=== PATIENT | female | born 1975 | race Caucasian/White ===

== ENCOUNTER 2020-04-21 15:58 | Emergency (ER) | payer MEDICAID ==
[~2020-04-21] VITALS: Ht 167.6 cm; Wt 102.1 kg
[2020-04-21] MEDS ORDERED: IBUPROFEN 600 MG TABLET PO ONE (16:30)
[2020-04-21] MEDS ORDERED: ACETAMINOPHEN ES 500 MG TABLET PO ONE (16:30)
[2020-04-21] MEDS ORDERED: IBUPROFEN 600 MG TABLET ONE (16:33)
[2020-04-21] MEDS ORDERED: ACETAMINOPHEN ES 500 MG TABLET ONE (16:33)
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
--- NOTE | 2020-04-21 17:33 | NUR ---
Abrasions cleansed with saline. Abrasions are very small and they are not bleeding. No glass seen. hoe worker Valerie called to assist.
--- NOTE | 2020-04-21 18:08 | NUR ---
[facility] OFFICERS HERE IN ROOM SPEAKING TO PATIENT AND SON
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
--- NOTE | 2020-04-21 18:45 | NUR ---
DC AND FOLLOW UP INSTRUCTIONS GIVEN AND EXPLAINED TO PATIENT WHO STATES SHE UNDERSTANDS ALL INSTRUCTIONS
== END 2020-04-21 18:48 | disposition home or self-care (01) ==
LOC: ER 15:58
DX: S80.812A Abrasion, left lower leg, initial encounter (principal); S80.811A Abrasion, right lower leg, initial encounter; S10.91XA Abrasion of unspecified part of neck, initial encounter; X99.8XXA Assault by other sharp object, initial encounter; Y92.89 Other specified places as the place of occurrence of the external cause; E66.9 Obesity, unspecified; Z68.36 Body mass index [BMI] 36.0-36.9, adult; R07.89 Other chest pain; Z88.6 Allergy status to analgesic agent
CPT/HCPCS: 71045; A4217; A4663; A9150